=== PATIENT | male | born 2000 | race Caucasian/White ===

== ENCOUNTER 2021-08-07 14:08 | Emergency (ER) | payer OTHER ==
[~2021-08-07] VITALS: Ht 180.3 cm; Wt 81.8 kg
[2021-08-07] MEDS ORDERED: PROAIR HFA0.09 MG/AC IH (14:36)
[2021-08-07 15:13] LABS: BASO # 0.04 K/mm3 (0.02-0.10); EOS # 0.22 K/mm3 (0.04-0.40); EOS % 2.8 % (0.0-4.0); HEMOGLOBIN 15.5 g/dL (13.5-18.0); LYMPH# 2.51 K/mm3 (1.50-4.00); MEAN CELL VOLUME 84 fl (78-100); MEAN CORPUSCULAR HEMOGLOBIN 30 pg (27-31); MEAN CORPUSCULAR HGB CONC 36 g/dL (33-37); MEAN PLATELET VOLUME 10.1 fl (7.4-10.4); MONO # 0.39 K/mm3 (0.20-0.80); NEU # 4.75 K/mm3 (1.40-6.50); PLATELET COUNT 264 K/mm3 (130-400); RED BLOOD COUNT 5.15 M/mm3 (4.20-5.60); RED CELL DISTRIBUTION WIDTH 11.9 % (11.5-14.5); WHITE BLOOD COUNT 7.9 K/mm3 (4.8-10.8)
[2021-08-07 15:17] LABS: ALBUMIN 4.8 g/dL (3.5-5.0)
[2021-08-07 15:18] LABS: CALCIUM 10.2 mg/dL (8.3-10.5)
[2021-08-07 15:19] LABS: TOTAL PROTEIN 7.7 g/dL (6.4-8.3)
[2021-08-07 15:21] LABS: TOTAL BILIRUBIN 0.7 mg/dL (0.2-1.2)
[2021-08-07 15:32] LABS: POTASSIUM 2.7 mmol/L (3.5-5.1)
[2021-08-07 15:50] LABS: URINE WBC 0 /hpf (0-3)
[2021-08-07 16:08] LABS: PH-URINE 7.5 (5.0 - 8.0); URINE APPEARANCE CLEAR; URINE COLOR YELLOW; URINE PROTEIN(semi-quant) TRACE (NEGATIVE)
[2021-08-07 16:09] LABS: URINE BILIRUBIN NEGATIVE (NEGATIVE); URINE BLOOD NEGATIVE (NEGATIVE); URINE GLUCOSE NEGATIVE (NEGATIVE); URINE KETONE NEGATIVE (NEGATIVE); URINE LEUKOCYTE ESTERASE NEGATIVE (NEGATIVE); URINE NITRATE NEGATIVE (NEGATIVE); URINE UROBILINOGEN NORMAL (NORMAL)
[2021-08-07 19:13] VITALS: BP 133/84
== END 2021-08-07 19:13 | disposition home or self-care (01) ==
LOC: ED 14:08
PROVIDERS: Family Medicine
DX: E87.6 Hypokalemia (principal); R06.4 Hyperventilation; F17.210 Nicotine dependence, cigarettes, uncomplicated
CPT/HCPCS: J3480

== ENCOUNTER 2022-07-06 12:40 | Emergency (ER) | payer OTHER ==
[~2022-07-06] VITALS: Ht 175.3 cm; Wt 88.6 kg
[~2022-07-06 12:40] MED LIST: PROAIR HFA0.09 MG/AC IH
[2022-07-06 14:44] VITALS: BP 142/77
== END 2022-07-06 14:51 | disposition home or self-care (01) ==
LOC: ED 12:40
DX: S61.011A Laceration without foreign body of right thumb without damage to nail, initial encounter (principal); Z28.310 Unvaccinated for COVID-19; W23.0XXA Caught, crushed, jammed, or pinched between moving objects, initial encounter; Y92.59 Other trade areas as the place of occurrence of the external cause; Y99.0 Civilian activity done for income or pay
CPT/HCPCS: J2270

== ENCOUNTER → 2024-06-29 | Outpatient (CLI) | payer OTHER ==
[~2024-06-29] VITALS: Ht 172.7 cm; Wt 81.8 kg
[~2024-06-29] MED LIST changes: +CEPHALEXIN500 M2 PO; +NORCO 325 MG-51 TA1 PO; +NS 1,000 ML IV SCH; +ONDANSETRON HYDR4 MG PO
[2024-06-29 18:01] VITALS: BP 141/84
[2024-06-29 18:43] LABS: PH-URINE 5.5 (5.0 - 8.0); URINE APPEARANCE CLEAR (CLEAR); URINE BILIRUBIN 1+ (NEGATIVE); URINE BLOOD NEGATIVE (NEGATIVE); URINE COLOR DARK YELLOW (YELLOW); URINE GLUCOSE NEGATIVE (NEGATIVE); URINE KETONE 1+ (NEGATIVE); URINE LEUKOCYTE ESTERASE NEGATIVE (NEGATIVE); URINE MUCUS PRESENT (NOT PRESENT); URINE NITRATE NEGATIVE (NEGATIVE); URINE PROTEIN(semi-quant) TRACE (NEGATIVE); URINE WBC 0-1 /hpf (0-3)
[2024-06-29 19:38] VITALS: BP 125/76
== END ==
LOC: RAD 17:25 → AMSURD 17:25
PROVIDERS: Nurse Practitioner Family
DX: R10.9 Unspecified abdominal pain (principal); R11.2 Nausea with vomiting, unspecified
CPT/HCPCS: J7030